=== PATIENT | male | born 2005 | race Caucasian/White ===

== ENCOUNTER 2024-03-07 03:22 | Emergency (ER) | payer OTHER, SELFPAY ==
[2024-03-07] MEDS ORDERED: Ketorolac Tromethamine 30 MG (1 mL) VIAL ONE (03:56)
[2024-03-07 04:31] LABS: #Basophils 0.07 10x3/uL (0.0-0.2); #Monocytes 0.79 10x3/uL (0.0-1.1); #Neutrophils 2.79 10x3/uL (1.5-8.4); %Basophils 1.2 % (0.0-2.0); %Eosinophils 1.7 % (0.0-6.0); %Lymphocytes 36.2 % (18.0-47.0); %Monocytes 13.4 % (0.0-10.0); %Neutrophils 47.3 % (40.0-75.0); Hemoglobin 15.3 g/dL (13.5-17.5); Mean Corpuscular HGB CONC 35.6 g/dL (32.0-36.0); Mean Corpuscular Hemoglobin 32.3 pg (27.0-33.0); Mean Corpuscular Volume 90.7 fL (81.2-95.1); Mean Platelet Volume 11.3 fL (7.4-10.4); Platelet Count 210 10x3/uL (150-450); RBC Distribution Width 11.9 % (11.5-14.5); Red Blood Cell (RBC) Count 4.74 10x6/uL (4.32-5.72); White Blood Cell (WBC) Count 5.9 10x3/uL (3.5-10.5)
[2024-03-07 04:46] LABS: ALT (SGPT) 21 U/L (8-55); AST (SGOT) 21 U/L (5-34); Albumin 4.3 g/dL (3.5-5.0); Alkaline Phosphatase 65 U/L (50-130); Anion Gap 13 mmol/L (10-20); BUN (Urea Nitrogen) 14 mg/dL (8.9-20.6); Bilirubin, Total 0.7 mg/dL (0.2-1.2); Calc. Creatinine Clearance 0 mL/min (70-130); Calcium 9.2 mg/dL (7.8-10.44); Carbon Dioxide 26 mmol/L (22-29); Chloride 103 mmol/L (98-107); Estimated GFR 128; Globulin 2.7 g/dL (2.4-3.5); Glucose 92 mg/dL (70-105); Lipase 35 U/L (8-78); Magnesium 2.2 mg/dL (1.7-2.2); Potassium 4.2 mmol/L (3.5-5.1); Sodium 138 mmol/L (136-145)
[2024-03-07 04:52] LABS: Troponin I Less than 0.010 ng/mL (< 0.028)
[2024-03-07] MEDS ORDERED: Iopamidol 300 61% 100 ML VIAL FS ONE (13:03)
== END 2024-03-07 06:22 | disposition home or self-care (01) ==
LOC: CSHERS 03:22 → EDBD 03:22 → CSHERS 06:22
DX: R07.89 Other chest pain (principal)
CPT/HCPCS: 71260; 74177; 80053; 83690; 83735; 84484; 85025; 93005; 96374; J1885; Q9967

== ENCOUNTER 2024-11-20 23:22 | Emergency (ER) | payer OTHER | END 2024-11-20 23:50 | disposition home or self-care (01) | LOC: CSHERS 23:22 | DX: S71.152A Open bite, left thigh, initial encounter (principal); F90.9 Attention-deficit hyperactivity disorder, unspecified type; W54.0XXA Bitten by dog, initial encounter; Y93.61 Activity, american tackle football | CPT/HCPCS: 99283 ==